=== PATIENT | male | born 1945 | race American Indian/Alaskan Native ===

== ENCOUNTER 2016-06-03 09:51 | Outpatient (CLI) | payer MEDICARE ==
--- NOTE | 2016-06-03 11:02 | XRay Report ---
CHEST 2 VIEWS: Compared to 09/21/14. HISTORY: Night sweats. FINDINGS: Normal cardiomediastinal silhouette. Trachea is midline. No consolidation, pneumothorax or pleural effusion. IMPRESSION: No acute cardiopulmonary findings.
== END 2016-06-03 09:52 | disposition home or self-care (01) ==
LOC: XRAY 09:51
PROVIDERS: ATTEND Family Medicine
DX: B02.9 Zoster without complications (principal); R61 Generalized hyperhidrosis
CPT/HCPCS: 71020